=== PATIENT | male | born 1945 | race Caucasian/White ===

== ENCOUNTER 2022-06-12 23:34 | Emergency (ER) | payer MEDICARE ==
[~2022-06-12] VITALS: Ht 185.4 cm; Wt 101.6 kg
[~2022-06-12 23:34] MED LIST: ASCO100T12 PO; ASPI-1443 PO; BUPROPION PO; CHOL20004 PO; CLON0.5T4 PO; CYAN250010 PO; DILT180C88 PO; FLUTICASONE PO; HYDR25TA PO; MAGN250T10 PO; MULTIVITAMIN PO; ROSU10TA22 PO; ULTIMATE FLORA PO; [UNRECOGNIZED DRUG - OTHER] PO
[2022-06-13] MEDS ORDERED: CYCL-309 PO (01:19)
[2022-06-13] MEDS ORDERED: IBUP-1493 PO (01:19)
[2022-06-13] MEDS ORDERED: GABA300C PO (01:20)
[2022-06-13 01:28] LABS: BASOPHILS % (AUTO) 0.7 % (0.0-5.0); EOSINOPHILS % (AUTO) 2.3 % (0.0-8.0); HEMATOCRIT 44.1 % (42-54); LYMPHOCYTES % (AUTO) 19.6 % (21.0-51.0); MEAN CORPUSCULAR HEMOGLOBIN 30.1 pg (27.0-33.0); MEAN CORPUSCULAR HGB CONC 33.1 g/dL (32.0-36.0); MEAN CORPUSCULAR VOLUME 90.9 fL (79-99); NEUTROPHILS % (AUTO) 68.2 % (40.0-77.0); PLATELET COUNT (AUTO) 256 K/uL (130-400); RED BLOOD CELL COUNT(AUTO) 4.85 MIL/uL (4.50-6.20); RED CELL DISTRIBUTION WIDTH 13.1 % (11.0-15.5); WHITE BLOOD COUNT (AUTO) 9.2 K/uL (4.8-10.8)
[2022-06-13 01:41] LABS: ALBUMIN 3.6 g/dL (3.5-5.0); CREATININE 0.9 mg/dL (0.5-1.5)
[2022-06-13 01:50] LABS: POTASSIUM 2.9 mmol/L (3.5-5.1)
[2022-06-13] MEDS ORDERED: 0.9%NACL 50ML IV SCH (03:00)
[2022-06-13] MEDS ORDERED: POTASSIUM CHLORIDE 10MEQ/100ML 100 ML IV SCH (03:00)
[2022-06-13] MEDS ORDERED: CALCIUM GLUC 1GM/10ML VIAL IVPB SCH (03:00)
[2022-06-13] MEDS ORDERED: CYCLOBENZAPRINE HCL 10 MG TABLET PO ONE (03:30)
[2022-06-13 03:47] LABS: APPEARANCE,URINE CLEAR (CLEAR); BILIRUBIN,URINE NEGATIVE (NEGATIVE); COLOR,URINE LIGHT-YELLOW (YELLOW); GLUCOSE, URINE (UA) NEGATIVE (NEGATIVE); KETONES,URINE NEGATIVE (NEGATIVE); LEUKOCYTE ESTERASE ,URINE NEGATIVE Leu/uL (NEGATIVE); NITRATE,URINE NEGATIVE (NEGATIVE); OCCULT BLOOD,URINE NEGATIVE (NEGATIVE); PROTEIN,URINE NEGATIVE (NEGATIVE); UROBILINOGEN,URINE 0.2 mg/dL (0.2-1.0)
[2022-06-13 05:06] VITALS: BP 152/75
== END 2022-06-13 05:21 | disposition home or self-care (01) ==
LOC: EDH 23:34
DX: R10.12 Left upper quadrant pain (principal); K80.20 Calculus of gallbladder without cholecystitis without obstruction; K57.90 Diverticulosis of intestine, part unspecified, without perforation or abscess without bleeding; N40.0 Benign prostatic hyperplasia without lower urinary tract symptoms; E83.51 Hypocalcemia; E87.6 Hypokalemia; K21.9 Gastro-esophageal reflux disease without esophagitis; E78.00 Pure hypercholesterolemia, unspecified; I48.91 Unspecified atrial fibrillation; I10 Essential (primary) hypertension; Z79.899 Other long term (current) drug therapy; Z79.82 Long term (current) use of aspirin; Z90.49 Acquired absence of other specified parts of digestive tract; Z90.89 Acquired absence of other organs
CPT/HCPCS: 99285; 96365; 96366; 96361; 96375; 82550; 82330; 80053; 83690; 85025; 81003; 36415; 74176; J0610

== ENCOUNTER 2024-07-27 20:50 | Emergency (ER) | payer MEDICARE ==
[~2024-07-27] VITALS: Ht 185.4 cm; Wt 98.9 kg
[~2024-07-27 20:50] MED LIST changes: +CYCL-309 PO; +GABA300C PO; +IBUP-1493 PO
--- NOTE | 2024-07-27 22:32 | ERN ---
General Chief Complaint: Eye Problems Stated Complaint: POSSIBLE TORN RETINA Time Seen by MD: 20:57 History of Present Illness Initial Comments Patient was a 79-year-old male who has a past medical history have high blood pressure atrial fibrillation allergies GERD hypercholesterolemia periodic limb movement disorder, comes in with concerns for a right eye retinal tear. He states that today he noticed a tree like pattern visual defect on his right eye there are not floaters but they do move when he moves his eyes. He was not lost total vision out of his right eye but he did have trouble filling up the paperwork. He states that the symptoms he was having in his right eye are exactly the same as the symptoms he had in his left eye eight years ago where he had to have a retinal tear repaired. Timing/Duration: 1-3 hours Severity: mild Allergies: Coded Allergies: Losartan (Unverified Allergy, Unknown, 08/30/15) Uncoded Allergies: SHINGLES VACCINE (Allergy, Unknown, 08/30/15) Home Meds Active Scripts Gabapentin (Neurontin) 300 Mg Capsule, 300 MG PO TID, #60 CAP Prov:LOI CRUZ MD 06/13/22 Ibuprofen (Motrin/Advil) 800 Mg Tab, 800 MG PO TID, #30 TAB Prov:LOI CRUZ MD 06/13/22 Cyclobenzaprine HCl (Cyclobenzaprine HCl) 10 Mg Tablet, 10 MG PO TIDP PRN for PAIN, #30 TAB Prov:LOI CRUZ MD 06/13/22 Diltiazem HCl (Diltiazem 24Hr Cd) 180 Mg Cap.er.24h, 180 MG PO DAILY, #60 CAPSULE. 3 Refills Prov:Ajay SINGH II, MD 09/01/15 Reported Medications [Altrum Nutritionoil] No Conflict Check, 500 MG PO DAILY 08/30/15 [Ultimate Joslyn] No Conflict Check, 1 CAP PO DAILY 08/30/15 Magnesium Oxide (Magnesium) 250 Mg Tablet, 250 MG PO DAILY, TAB 08/30/15 Cyanocobalamin (Vitamin B-12) (Vitamin B12) 2,500 Mcg Tablet, 2500 MCG PO DAILY, TAB 08/30/15 Cholecalciferol (Vitamin D3) (Vitamin D) 2,000 Unit Capsule, 2000 UNIT PO DAILY, CAP 08/30/15 Ascorbic Acid (Vitamin C) 100 Mg Tablet, 100 MG PO DAILY, TAB 08/30/15 [Multivitamin ] No Conflict Check, 1 TAB PO DAILY 08/30/15 Aspirin (Aspirin EC) 81 Mg Tablet.dr, 81 MG PO HS, TAB 08/30/15 Rosuvastatin Calcium (Crestor) 10 Mg Tablet, 10 MG PO HS, TAB 08/30/15 [Bupropion Sr] No Conflict Check, 150 MG PO BID 08/30/15 Clonazepam (Clonazepam) 0.5 Mg Tablet, 0.5 TAB PO HS, TAB 08/30/15 [Fluticasone] No Conflict Check, 50 MCG PO BID 08/30/15 Hydrochlorothiazide (Hydrochlorothiazide) 25 Mg Tablet, 25 MG PO HS, TAB 08/30/15 Past Medical History Past Medical History: Arrythmia, High Cholesterol, Hypertension Medical History Other: Periodic limb movements Past Surgical History: Appendectomy, Tonsillectomy, Other Family History Family History: HTN Social History Social History: Negative, Lives with family Physical Exam General Appearance: (+) no apparent distress Orientation: (+) oriented x 3 Head/Face Trauma: No Eye: bilateral eye normal inspection, bilateral eye PERRL, bilateral eye EOMI Ear, Nose, Throat: (+) hearing grossly normal, (+) normal ENT inspection Neck: (+) normal inspection, (+) supple, (+) no JVD Respiratory: (+) chest non-tender, (+) lungs clear, (+) well ventilated Heart: (+) regular, (+) no gallop Vascular: (+) no edema Gastrointestinal: (+) soft, (+) non-tender, (+) bowel sound present Results Laboratory and Microbiology Lab and Micro Result Laboratory Tests Test 07/28/24 00:59 Prothrombin Time 11.6 SEC (9.6-11.6) Prothromb Time International Ratio 1.11 (0.85-1.15) Activated Partial Thromboplast Time 29.5 SEC (26.3-35.5) MDM I talked to the garnishment specialist Dr. Ashley with [facility] [phone] at 12:05 [facility], who will see the patient at 9:00 a.m. tomorrow morning. He recommends that the patient stay sitting upright taking it easy and that tomorrow morning is plenty of time to diagnose and treat the retinal detachment. Because the patient was on Eliquis I ordered an INR to be sure the patient was not hyper coagulopathic. Of note the patient was not in atrial fibrillation right now and I told him it would be safe to skip tonight's dose before he sees the doctor in the morning. Pt's INR is normal. ED Course Orders Procedure Category Date Status Time Pt And Ptt LAB 07/27/24 Complete 23:58 Vital Signs Date Time Temp Pulse Resp B/P (MAP) Pulse Ox O2 Delivery O2 Flow Rate FiO2 07/28/24 01:01 67 18 165/83 96 Room Air* 0 21 07/27/24 20:57 98.8 85 20 185/94 96 Room Air DX & DISP Disposition: Discharge Departure Impression: Primary Impression: Retinal detachment Condition: Stable Additional Instructions: Pt to call [facility] at [phone] tomorrow morning to schedule an appointment with Dr. Ashley. Referrals: SELF,REFERRAL (PCP) CASSY SANTILLAN MD Jul 27, 2024 22:32
[2024-07-28 01:18] LABS: INR 1.11 (0.85-1.15); PROTHROMBIN TIME 11.6 SEC (9.6-11.6)
[2024-07-28 01:19] LABS: PARTIAL THROMBOPLASTIN TIME 29.5 SEC (26.3-35.5)
--- NOTE | 2024-07-28 01:32 | NUR ---
MD AND AT BEDSIDE.
[2024-07-28 01:51] VITALS: BP 150/77; PULSE 66; RESP 18; TEMP 98.4; O2SAT 98
== END 2024-07-28 01:52 | disposition home or self-care (01) ==
LOC: EDH 20:50
DX: H33.21 Serous retinal detachment, right eye (principal); E78.00 Pure hypercholesterolemia, unspecified; I10 Essential (primary) hypertension; I48.91 Unspecified atrial fibrillation; Z79.1 Long term (current) use of non-steroidal anti-inflammatories (NSAID); Z79.82 Long term (current) use of aspirin; Z79.899 Other long term (current) drug therapy; Z90.49 Acquired absence of other specified parts of digestive tract; Z90.89 Acquired absence of other organs
CPT/HCPCS: 36415; 85610; 85730; 99283